=== PATIENT | male | born 1995 | race Caucasian/White ===

== ENCOUNTER 2016-09-01 18:09 | Observation (INO) ==
[2016-09-01 19:50] LABS: AGAP 16; ALBUMIN 4.8 g/dL (3.5-5.0); ALKALINE PHOSPHATASE 111 U/L (32-122); BUN 10 mg/dL (8-22); CALCIUM 9.3 mg/dL (8.8-10.2); CHLORIDE 100 mmol/L (98-107); COSMO 278; GOT 36 U/L (10-34); GPT 41 U/L (10-44); POTASSIUM 3.7 mmol/L (3.5-5.1); SODIUM 140 mmol/L (136-145); TCO2 25 mmol/L (25-35)
[2016-09-01] MEDS ORDERED: GLUCAGON IV ONE (20:12)
[2016-09-01] MEDS: NITROGLYCERIN SL PRN ×3 (20:30→20:41)
[2016-09-01] MEDS ORDERED: MORPHINE IV ONE (20:51)
[2016-09-01] MEDS ORDERED: ZOFRAN IV ONE (20:52)
[2016-09-01] MEDS ORDERED: NS 1,000 ML IV ONE (21:07)
[2016-09-01] MEDS ORDERED: ZOFRAN IV PRN (21:07)
[2016-09-01] MEDS ORDERED: MORPHINE IV PRN (21:07)
[2016-09-02] MEDS ORDERED: MORPHINE IV PRN ×2 (00:34→00:39)
[2016-09-02] MEDS ORDERED: SODIUM CHLORIDE 0.9% INJ SCH (00:45)
[2016-09-02] MEDS ORDERED: PROTONIX IV SCH (00:45)
--- NOTE | 2016-09-02 05:56 | HISTORY AND PHYSICAL ---
CHIEF COMPLAINT: Inability to swallow, pain. HISTORY OF PRESENT ILLNESS: Briefly, this is a 20-year-old white male, no significant medical problems, who came in today with difficulty swallowing/handling secretions. He had ribs I think for dinner around 5:45 p.m. He just could no longer tolerate swallowing, had significant pain in his chest and could not keep any of his secretions down. They were just coming back up. He has since improved somewhat although has not thrown up any solid material at this point. They tried in the ER for medical treatment. He was given morphine, nitroglycerin and glucagon and had no improvement so he was admitted for esophageal impaction and evaluation for endoscopy. The case has been discussed with Dr. Olivo. PAST MEDICAL HISTORY: Denies. PAST SURGICAL HISTORY: He has had ruptured ear drum. FAMILY HISTORY: Reviewed and noncontributory. SOCIAL HISTORY: No tobacco. Occasional alcohol use on the weekend. No recreational drugs. ALLERGIES: No known drug allergies. MEDICATIONS: I do not think he takes anything systematically. He had some treatment in the past for pharyngitis. REVIEW OF SYSTEMS: Negative x10 point review of systems. PHYSICAL EXAMINATION: VITAL SIGNS: Blood pressure 135/56, heart rate 57, respiratory rate 18, temperature 98 degrees, 98% sat on room air. GENERAL: A well-developed male in no acute distress. HEAD: Normocephalic, atraumatic. EYES: Pupils equal, round, reactive to light. Extraocular movements were intact. EAR/NOSE/THROAT: He had moist mucous membranes. NECK: Supple. CARDIOVASCULAR: Regular rate and rhythm. No murmurs, gallops, or rubs. PULMONARY: Bilateral breath sounds. Clear to auscultation. GASTROINTESTINAL: Soft, nontender, nondistended. Bowel sounds were positive. LABORATORY DATA: CMP was normal. ASSESSMENT: A 20-year-old white male presenting with an esophageal food impaction. We will keep NPO, probably continue IV fluids, pain control and follow clinically. Plan for endoscopy per Dr. Crocker or Dr. Olivo in the morning and hopefully can be discharged subsequently if he stabilizes. cc: MD Bora Mace MD
[2016-09-02 07:33] LABS: HEMATOCRIT 45.2 % (42.0-52.0); HEMOGLOBIN 15.8 g/dL (14.0-18.0); MCH 31.3 PG (27-31); MCV 89.7 FL (81-99); MPV 10.3 FL (7.4-10.4); RBC 5.04 XMIL (4.7-6.1)
[2016-09-02 07:34] VITALS: BP 134/64
[2016-09-02] MEDS ORDERED: DIPRIVAN 1% ONE (15:18)
[2016-09-02] MEDS ORDERED: XYLOCAINE-MPF 2% ONE (15:23)
--- NOTE | 2016-09-02 15:39 | CONSULTATION ---
DATE OF CONSULTATION: 09/02/2016 REASON FOR CONSULTATION: Food impaction. HISTORY OF PRESENT ILLNESS: This is a 20-year-old, white male, who reports onset of symptoms yesterday evening around 6 o'clock. He was eating ribs for supper, and at the time he took a bite he also had belched and he felt the meat got hung in his esophagus. He has not been able to handle his secretions well. He reports spitting up phlegm. He is reporting abdominal pain more now than chest pain. He was transferred from [facility] to [facility] for further evaluation and plans for EGD today. At home, he denies any significant issues with reflux or heartburn. No other GI issues reported. PAST MEDICAL HISTORY: None significant. PAST SURGICAL HISTORY: Left ear drum repair from ruptured ear drum. SOCIAL HISTORY: Quit tobacco use several months ago. Rare alcohol use. He is a insulation mechanic and works in maintenance. He is engaged. He does not have children. ALLERGIES: No known drug allergies. HOME MEDICATIONS: There is listed Cleocin and Augmentin; I am not sure when those were prescribed and for what reason. He had 2 antibiotics listed. Apparently he had taken treatment for recent pharyngitis. PHYSICAL EXAMINATION: Vital Signs: Temperature 98.3 degrees, pulse 55, respirations 20, blood pressure 134/64. General: Generally patient is awake, alert, in no acute distress. He is having episodes of spitting up phlegm during evaluation. HEENT: Normocephalic, atraumatic. Pupils equal, round, reactive to light. Respiratory: Lung sounds essentially clear bilaterally. Abdomen: Soft. Some mild tenderness in the epigastric area. Bowel sounds positive. LABORATORY: Hematology: White count 6.29, hemoglobin 15.8, hematocrit 45.2, MCV 89.7, platelets 208. Chemistry: Sodium 140, potassium 3.7, chloride 100, CO2 25, BUN 10, creatinine is 0.8, glucose 89, total bilirubin 0.40, AST 36, ALT 41, alkaline phosphatase 111. ASSESSMENT: 1. Acute food impaction. 2. Abdominal pain, chest pain. PLAN: Continue to keep patient n.p.o. Continue IV fluids and p.r.n. medications for pain. EGD planned for today by Dr. Crocker. I have discussed the procedure along with benefits and risks with the patient and his family. They wish to proceed. Further plans to be made according to findings. Thank you for this consultation. Dictated by KIRILL Cannon for Oziel Crocker MD cc: KIRILL Beatty MD Scott A. Matthews, MD MTDD
--- NOTE | 2016-09-02 17:30 | OPERATIVE NOTE ---
PROCEDURE DATE: 09/02/2016 PROCEDURES: EGD and foreign body removal and biopsy. MEDICATION USED: MAC as per Anesthesia. SCOPE USED: Olympus GIF HQ-190. PREOPERATIVE DIAGNOSIS: Acute food impaction. POSTOPERATIVE DIAGNOSES: 1. Acute food impaction. Foreign body removed. 2. Esophagitis. HISTORY: This is a 20-year-old, white male with no history of major medical problems admitted to the hospital last night with complaints of acute food impaction. He had eaten ribs and since then, he has not been able to swallow his own saliva. He is constantly spitting up. He has a significant chest discomfort when he tries to swallow. EGD was done for diagnostic as well as therapeutic purposes. DESCRIPTION OF PROCEDURE: Informed consent was obtained from the patient. The procedure, risks, benefits, alternatives were explained in layman's terms. He understood. All his pertinent questions were answered. The patient was brought to the endoscopy unit and was premedicated as per Anesthesia. After adequate sedation, while he was lying in left lateral position the gastroscope was introduced into the posterior pharynx and advanced under direct vision into the esophagus. There was some liquid present in the proximal esophagus which was suctioned out. Distal esophagus showed evidence of food impacted in the in the esophagus. It appeared to be the meat. The upper part of the food was removed without difficulty and then most of the bolus was gently pushed into the stomach. After the esophagus was cleansed I did see an area of significant esophagitis and an esophageal ring at about 41 cm from the incisor. The proximal esophagus showed ridges and furrows suggestive of eosinophilic esophagitis. Multiple biopsies were obtained from the esophagus using cold biopsy forceps to check for eosinophilic esophagitis. The scope could easily be passed through the esophagus into the stomach. Stomach was examined both straight and retroflexed view, which revealed evidence of food present in the stomach pushed down from the esophagus. Otherwise, no ulcer, AVM or masses were seen. The scope was then passed through the pylorus into the duodenal bulb, and then the 2nd part duodenum. Both appeared to be normal. The scope was then removed. Patient tolerated the procedure well. No complications noted. Patient was then transferred to the recovery area in a stable condition. IMPRESSION: 1. Acute food impaction. Foreign body removed. 2. Esophagitis, distal esophagus. 3. Mucosa changes suggestive of eosinophilic esophagitis. RECOMMENDATION: 1. I have written a prescription for proton pump inhibitor, Dexilant 60 mg p.o. every day. 2. I advised him to start Flovent 2 puffs to swallow twice a day. 3. Follow up the biopsy report in 2 weeks. Follow up with me in the office in 6-8 weeks. Recommended to follow up primary care as scheduled. Advised him to stop carbonated drinks and stop chewing tobacco. cc: MD Bora Mckinley MD
--- NOTE | 2016-09-03 16:07 | DISCHARGE SUMMARY ---
ADMISSION DATE: 09/01/2016 DISCHARGE DATE: 09/02/2016 ADMISSION DIAGNOSES: 1. Inability to swallow. 2. Chest pain. DISCHARGE DIAGNOSES: 1. Esophageal obstruction with acute food impaction. 2. Esophagitis, suspected eosinophilic. PROCEDURES: EGD was performed on 08/06/2016 which revealed a foreign body/food impaction. CONSULTATIONS: Dr. Crocker with GI was consulted for further evaluation and management of above- mentioned symptoms. HISTORY AND PHYSICAL EXAMINATION: See admit note. PHYSICAL EXAMINATION PRIOR TO DISCHARGE: Vital Signs: Temperature 98.3 degrees, heart rate 55, respirations 21, blood pressure is 134/64. General: Well nourished, well developed, no acute distress. Cardiovascular: Regular rate and rhythm. No significant murmurs, rubs, or gallops. Pulmonary: Clear to auscultation bilaterally. Abdomen: Soft, nontender, nondistended. Positive bowel sounds. Extremities: Moves all extremities well. No significant clubbing, cyanosis, or edema. Dermatologic: Evaluation reveals no evidence of rash. LABORATORY DATA: Prior to discharge white blood count 6.29, hemoglobin 15.5, hematocrit 45.2, platelet counts 208,000. Sodium 140, potassium 3.7, chloride 100, bicarb 25, BUN 10, creatinine 0.8, glucose 89, calcium 9.3, total bilirubin 0.40, total protein 8.0, albumin 4.8, alkaline phosphatase 111. AST 41, ALT 36. HOSPITAL COURSE: Patient was admitted as per history and physical examination. Hospital course per condition is as follows. 1. Acute esophageal food impaction - upon admission, patient was noted to have significant pain after eating. The patient was treated supportively, but unfortunately did not pass this spontaneously. Patient was taken for an EGD evaluation on 08/06/2106. Patient tolerated this procedure well. The food impaction was removed. Incidentally, patient was found to have esophagitis, likely eosinophilic in etiology. The patient will be discharged home on Dexilant and oral Flovent. The patient will be followed closely as an outpatient. 2. Presumed eosinophilic esophagitis - as above, patient will be discharged home on Dexilant and oral Flovent. We will defer management as an outpatient to Dr. Crocker. DISCHARGE CONDITION: Good. DISPOSITION: Discharge to home. MEDICATIONS: 1. Dexilant 60 mg daily. 2. Flovent 220 mcg HFA 2 puffs swallowed twice daily. FOLLOWUP: Patient is to follow up with me as arranged. Patient is follow up with Dr. Crocker as arranged. cc: Bora Subramanian MD
== END 2016-09-02 17:49 | disposition home or self-care (01) ==
LOC: 3N 18:09 → P.ED 18:09 → SUATTDRO 21:55 → SUPCPDRO 21:55
PROVIDERS: ADMIT Internal Medicine; ATTEND Internal Medicine